=== PATIENT | male | born 1975 | race Caucasian/White ===

== ENCOUNTER 2017-05-21 07:26 | Emergency (ER) | payer OTHER, SELFPAY ==
[2017-05-21 07:29] VITALS: BP 121/69; PULSE 80; RESP 16; TEMP 36.6; O2SAT 98; BMI 34.0
--- NOTE | 2017-05-21 08:03 | RAD_ITS ---
STUDY: X-RAY - LEFT HAND, ATTENTION INDEX FINGER REASON FOR EXAM: Male, 42 years old. Pain following injury. TECHNIQUE: 3 view(s) of the finger were obtained. COMPARISON: None. FINDINGS: Normal metacarpal head. Normal metacarpophalangeal joint. Normal proximal phalanx. Nondisplaced avulsion type fracture at the base of the middle phalanx of the index finger. Normal distal phalanx. Normal proximal interphalangeal joint. Normal distal interphalangeal joint. Soft tissue swelling. RAD/Finger(s) Min 2 Views IMPRESSION: Nondisplaced avulsion type fracture at the base of the middle phalanx of the index finger. Soft tissue swelling. Electronically Signed: Nasim Garcia MD at 8:33 EDT Tel [phone], Service support ,
--- NOTE | 2017-05-21 09:13 | ED.DCSUM_ITS ---
- ER Visit Summary Date of Service: 05/21/17 Chief Complaint: Laceration History of Present Illness: The patient is a [address] Ramirez. 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 He is left-hand dominant. He is unsure when his last tetanus shot was. He denies any pain or paresthesias. He denies any difficulty with movement of that finger. Physical Examination: Vitals: Stable. Afebrile. General: Well-nourished and well-developed. Head: Normocephalic atraumatic. Neck: Supple, no lymphadenopathy. No JVD. Nontender. Cardiovascular: Regular rate and rhythm. No murmurs. Respiratory: No respiratory distress. Clear to auscultation bilaterally. Abdominal: Soft, nontender, nondistended, normal bowel sounds. No guarding, rebound, or peritoneal signs. Back: Nontender. Extremities: 7 cm laceration on the dorsum of the proximal phalanx of his left second finger. This extends over the MCP joint and into the proximal phalanx. It does not extend over the PIP joint. He is neurovascularly intact distal this. He has normal function. He is able to extend at both the PIP, DIP, and MCP joints against resistance. He has normal sensation to light touch and two- point discrimination. Skin: Normal color, no rash. Neurologic: Alert and oriented ?3. Cranial nerves II through XII are intact. Normal strength and sensation. Psych: Normal affect. Test Results: X-ray shows a nondisplaced avulsion fracture the base the middle phalanx. I discussed this with the patient he states that this is an old injury. This is not in the area of the laceration. Emergency Department Course and Treatment: Patient refused pain medications. He had his tetanus updated. He had his wound anesthetized and repaired. He tolerated it well. Treatment Plan: He will be discharged with instructions to follow-up with his primary care physician in 10-14 days for suture removal. Return to the emergency department for any signs of infection. Disposition: To home in improved and stable condition. Impression: 1. Laceration left index finger, 7 cm, repaired. Procedure note: Wound was cleansed with chlorhexidine soap. Anesthetized with 1% bupivacaine without epinephrine as a digital block. Copiously irrigated with normal saline. Wound was explored there is no foreign material present. It was closed with 8 simple interrupted 4-0 ethilon sutures. The patient tolerated it well. This note was generated with [employer] dictation software. It may contain incorrect words, spelling, and punctuation that were not noted in review of the chart prior to signing ED Disposition - Plan for ED Patient: Chief Complaint: Laceration Instructions: ED Laceration Hand Referrals: Doctor,Your [STAFF PHYSICIAN] - 10-14 Days suture removal
[2017-05-21] MEDS: Diphth,Pertuss(Acell),Tet Vac 0.5 ML Vial IM (10:00)
[2017-05-21] MEDS: Bupivacaine Mpf 0.5% 30 ML VIAL INFILT (10:01)
== END 2017-05-21 10:05 | disposition home or self-care (01) ==
LOC: ED 07:51
PROVIDERS: Emergency Provider Emergency Medicine
DX: S61.211A Laceration without foreign body of left index finger without damage to nail, initial encounter (principal); W31.82XA Contact with other commercial machinery, initial encounter; Y93.89 Activity, other specified; Y92.89 Other specified places as the place of occurrence of the external cause; Y99.0 Civilian activity done for income or pay; K21.9 Gastro-esophageal reflux disease without esophagitis; Z23 Encounter for immunization
CPT/HCPCS: 12002; 73140; 90715; 99284